=== PATIENT | female | born 1995 | race Caucasian/White ===

== ENCOUNTER → 2019-11-10 16:18 | Outpatient (BNVA) | payer MEDICAID, SELFPAY | PROVIDERS: PCP Nurse Practitioner Family; Visit Provider Registered Nurse | DX: R68.89 Other general symptoms and signs (principal); R10.9 Unspecified abdominal pain; N39.0 Urinary tract infection, site not specified; K59.00 Constipation, unspecified | CPT/HCPCS: 81003; 81025; 87077; 87086; 87186; 87804 ==

== ENCOUNTER 2020-06-26 02:11 | Emergency (ER) | payer MEDICAID, SELFPAY ==
[2020-06-26 02:19] VITALS: BP 115/68; PULSE 106; RESP 16; TEMP 37; O2SAT 98; BMI 20.5
--- NOTE | 2020-06-26 02:32 | ECG_ITS ---
[facility] Test Date: 2020-06-26 Pat Name: Alisia Hidalgo Department: Room: Gender: Female [employer]: : 1995 Requested By: Malcom Vizcarra Order Number: [id number] Francisco MD: Yvette Rogers M.D. Measurements Intervals [place] Rate: 108 P: 72 LA: 161 QRS: 89 QRSD: 90 T: 65 QT: 319 QTc: 429 Interpretive Statements SINUS TACHYCARDIA LEFT ATRIAL ENLARGEMENT [-0.15mV P WAVE IN V1/V2] MODERATE ST DEPRESSION [0.05+ mV ST DEPRESSION] Compared to ECG 07/09/2018 16:26:49 Atrial abnormality now present ST (T wave) deviation now present Sinus rhythm no longer present Sinus arrhythmia no longer present Electronically Signed On 06-27-2020 7:57:30 CDT by Yvette Rogers M.D. [email or web address]
--- NOTE | 2020-06-26 03:02 | ED_ITS ---
HPI - Seizure General: Chief Complaint: Seizure Stated Complaint: SEIZURE Time Seen by Provider: 06/26/20 02:20 History of Present Illness: HPI Narrative: Patient is a 24-year-old female comes to the ED via EMS for seizure activity. [facility] PFSH: Social History Smoking and tobacco status: never smoked Course Vital Signs: Vital signs: Vital Signs Temperature 98.6 F 06/26/20 02:19 Pulse Rate 106 H 06/26/20 02:19 Respiratory Rate 16 06/26/20 02:19 Blood Pressure 115/68 06/26/20 02:19 Pulse Oximetry 98 06/26/20 02:19 MDM - Seizure MDM Narrative: Medical decision making narrative: Patient left before I was able to come in and perform an evaluation. She was refusing labs and any further testing. Patient wanted to leave and signed out AMA. Discharge Plan Discharge Patient Disposition: Left Against Medical Advice Condition: Stable Prescriptions: No Action albuterol sulfate 90 mcg/actuation aerosol powdr breath activated 2 inh INHALATION Q4H PRNRF: 0 albuterol sulfate 2.5 mg /3 mL (0.083 %) solution for nebulization 2.5 mg INHALATION Q6H RF: 0 Referrals: Juancarlos Bhat FNP [Primary Care Provider] - Coding Level of Care Code ED Business Planning Director for Kera Smith
== END 2020-06-26 04:29 | disposition left against medical advice (07) ==
PROVIDERS: Emergency Provider Physician Assistant; PCP Nurse Practitioner Family
DX: R56.9 Unspecified convulsions (principal); Z53.21 Procedure and treatment not carried out due to patient leaving prior to being seen by health care provider
CPT/HCPCS: 12345; 93005; 96360; 99282; 99283

== ENCOUNTER → 2020-07-05 14:52 | Outpatient (BNVA) | payer MEDICAID, SELFPAY | PROVIDERS: PCP Nurse Practitioner Family; Visit Provider Registered Nurse | DX: A49.9 Bacterial infection, unspecified (principal); N39.0 Urinary tract infection, site not specified | CPT/HCPCS: 81000 ==